=== PATIENT | female | born 1940 | race Caucasian/White ===

== ENCOUNTER → 2016-12-20 | Outpatient (CLI) | payer OTHER ==
[~2016-12-20] MED LIST: AMLO-110 PO; ATEN-173 PO; BNV150 PO; CMD4 PO
[2016-12-20 14:07] LABS: BLOOD UREA NITROGEN 14 mg/dl (7-18); BUN/CREATININE RATIO 20.6 (10-20); CALCIUM 8.9 mg/dl (8.5-10.1); CARBON DIOXIDE 24 mmol/L (21-32); CHLORIDE 106 mmol/L (98-107); GLUCOSE 96 mg/dl (70-99); POTASSIUM 4.3 mmol/L (3.5-5.1); SODIUM 139 mmol/L (136-145)
[2016-12-20 14:09] LABS: ALKALINE PHOSPHATASE 135 U/L (45-117); ALT/SGPT 26 U/L (12-78); AST/SGOT 16 U/L (15-37)
[2016-12-21 17:06] LABS: ALBUMIN 4.1 G/DL (3.8-4.8); GAMMA GLOBULIN 1.2 G/DL (0.8-1.7); IMMUNOFIXATION IGA SERUM 448 MG/DL (81-463); IMMUNOFIXATION IGG SERUM 1212 MG/DL (694-1618); IMMUNOFIXATION IGM SERUM 96 MG/DL (48-271); TOTAL PROTEIN 7.5 G/DL (6.2-8.3)
== END | disposition home or self-care (01) ==
LOC: C.LABPVFM 07:52
PROVIDERS: ATTEND Family Medicine
DX: R77.1 Abnormality of globulin (principal); I10 Essential (primary) hypertension

== ENCOUNTER → 2016-12-30 | Outpatient (CLI) | payer OTHER | END | disposition home or self-care (01) | LOC: C.MAMM 10:50 | PROVIDERS: ATTEND Family Medicine | DX: M85.852 Other specified disorders of bone density and structure, left thigh (principal); M85.851 Other specified disorders of bone density and structure, right thigh; M85.88 Other specified disorders of bone density and structure, other site ==

== ENCOUNTER → 2017-06-15 | Outpatient (CLI) | payer OTHER ==
[2017-06-15 17:20] LABS: BASO % 0.3 %; BASO ABS # 0.03 K/uL (0-0.2); COMPLETE YES; HEMATOCRIT 44.4 % (37-47); IG% 0.2 %; LYMPH % 24.5 %; LYMPH ABS # 2.45 K/uL (1.2-3.4); MEAN CELL VOLUME 94.9 fL (80-100); MEAN CORPUSCULAR HEMOGLOBIN 31.4 pg (25-34); MEAN CORPUSCULAR HGB CONC 33.1 g/dl (32-36); MEAN PLATELET VOLUME 12.2 fL (7.4-10.4); MONO % 8.2 %; NEUT % 65.8 %; PLATELET COUNT 248 K/uL (130-400); RED BLOOD COUNT 4.68 M/uL (4.2-5.4); WHITE BLOOD COUNT 9.99 K/uL (4.8-10.8)
[2017-06-15 17:31] LABS: ALT/SGPT 29 U/L (12-78); BLOOD UREA NITROGEN 12 mg/dl (7-18); BUN/CREATININE RATIO 16.1 (10-20); CALCIUM 9.2 mg/dl (8.5-10.1); CARBON DIOXIDE 31 mmol/L (21-32); CHLORIDE 104 mmol/L (98-107); CREATININE 0.72 mg/dl (0.60-1.20); GLUCOSE 85 mg/dl (70-99); POTASSIUM 4.3 mmol/L (3.5-5.1); SODIUM 138 mmol/L (136-145)
[2017-06-15 17:34] LABS: ALKALINE PHOSPHATASE 121 U/L (45-117); AST/SGOT 25 U/L (15-37)
== END | disposition home or self-care (01) ==
LOC: C.LABPVFM 11:47
PROVIDERS: ATTEND Family Medicine
DX: I10 Essential (primary) hypertension (principal); E55.9 Vitamin D deficiency, unspecified; R73.01 Impaired fasting glucose; R77.1 Abnormality of globulin

== ENCOUNTER → 2017-12-22 | Outpatient (CLI) | payer OTHER ==
[2017-12-22 13:37] LABS: ALBUMIN 3.7 gm/dl (3.4-5.0); ALT/SGPT 37 U/L (12-78); BLOOD UREA NITROGEN 12 mg/dl (7-18); CALCIUM 9.1 mg/dl (8.5-10.1); CARBON DIOXIDE 24 mmol/L (21-32); CHOLESTEROL 182 mg/dl (0-200); CREATININE 0.69 mg/dl (0.60-1.20); GLUCOSE 93 mg/dl (70-99); POTASSIUM 4.3 mmol/L (3.5-5.1); SODIUM 136 mmol/L (136-145)
[2017-12-22 13:41] LABS: ALKALINE PHOSPHATASE 125 U/L (45-117); AST/SGOT 26 U/L (15-37); LDL CHOLESTEROL CALCULATED 102 mg/dl; TOTAL PROTEIN 8.1 gm/dl (6.4-8.2)
== END | disposition home or self-care (01) ==
LOC: C.LABPVFM 08:55
PROVIDERS: ATTEND Family Medicine
DX: Z13.220 Encounter for screening for lipoid disorders (principal); R00.2 Palpitations; I10 Essential (primary) hypertension; E06.3 Autoimmune thyroiditis; E55.9 Vitamin D deficiency, unspecified; N81.10 Cystocele, unspecified

== ENCOUNTER → 2018-02-24 | Outpatient (CLI) | payer OTHER ==
--- NOTE | 2018-02-24 07:28 | DIAGNOSTIC IMAGING REPORT ---
ULTRASOUND ABDOMEN COMPLETE CLINICAL HISTORY: Low back pain. Left lower quadrant abdominal pain. COMPARISON STUDY: Abdominal ultrasound dated 10/25/2013. TECHNIQUE: Real-time, grayscale, and color flow sonography of the abdomen was performed. Images are reviewed in the transverse and longitudinal planes. FINDINGS: Liver: The liver is normal in size and echotexture. There is no intrahepatic biliary ductal dilatation. The main portal vein is patent. Gallbladder: The gallbladder is surgically absent. The common bile duct measures up to 0.5 cm in diameter. Pancreas: Visualized portions of the pancreatic head and body are normal in appearance. Spleen: The spleen is normal in size and echotexture, measuring 9.2 cm in length. Kidneys: The kidneys are normal in size and echotexture. There is no hydronephrosis. The right kidney measures 11.2 cm in length and the left kidney measures 11.4 cm in length. No shadowing calculi are identified. Abdominal vasculature: Visualized portions of the abdominal aorta and IVC are normal as imaged. Ascites: None. IMPRESSION: Unremarkable sonographic assessment of the abdomen noting status post cholecystectomy. Electronically signed by: Yash Mac M.D. 02/24/2018 7:27 AM Dictated Date/Time: 02/24/2018 7:25 AM
== END | disposition home or self-care (01) ==
LOC: C.ULTR 06:24
PROVIDERS: ATTEND Family Medicine
DX: M54.5 Low back pain (principal); R10.32 Left lower quadrant pain

== ENCOUNTER → 2018-04-06 | Day surgery (SDC) | payer OTHER ==
[2018-03-30 07:38] VITALS: BMI 28.0
[~2018-04-06] VITALS: Ht 157.5 cm; Wt 69.1 kg
[~2018-04-06] MED LIST changes: +ASCO10003 PO; -ATEN-173 PO; -BNV150 PO; +CALC600T9 PO; +CHOL100010 PO; -CMD4 PO; +EpHEDrine SULFATE INJ 50 MG/ML AMP ONE; +LIDOCAINE HCL 2% 2 ML VIAL (20MG/ML) ONE; +PROPOFOL IV EMULSION 10 MG/ML 20 ML VIAL ONE; +SODIUM CHLORIDE 0.9% 500ML 500 ML IV ONE; +TNR50 PO
[2018-04-06 15:01] VITALS: Ht 157.5 cm; Wt 69.1 kg
--- NOTE | 2018-04-06 15:53 | Endo History and Physical ---
History & Physical Date of Service: April 06, 2018. Chief Complaint: HX OF POLYPS, LLQ ABDOMINAL PAIN Referring Physician: DR. GARLAND History of Present Illness 77 yo CF who presents for colonoscopy secondary to LLQ abdominal pain. Past Surgical History Hx Cardiac Surgery: No Hx Internal Defibrillator: No Hx Pacemaker: No Hx Abdominal Surgery: Yes (HYSTERCTOMY, APPY, ANNE MARIE) Hx Post-Op Nausea and Vomiting: Yes Hx Cancer Surgery: No Hx Thoracic Surgery: No Hx Orthopedic: Yes (LEFT KNEE PARTIAL REPLACEMENT) Hx Urinary Tract Surgery: No Family History Colon CA, Polyp, IBD Social History Smoking Status: Never Smoker Hx Substance Use: No Hx Alcohol Use: Yes (OCCASIONAL) Allergies Coded Allergies: Iodinated Diagnostic Agents (Verified Allergy, Severe, HIVES->KIDNEY FUNCTION DYE, 03/30/18) Propoxyphene (Verified Allergy, Unknown, HIVES, 03/30/18) Codeine (Verified Adverse Reaction, Unknown, HALLUCINATIONS, 03/30/18) Current Medications Reported Home Medications Medications Dose Route/Sig Max Daily Dose Days Date Category Calcium + D (Calcium Carbonate-Vitamin D) 1 Tab Tab 1 Tab PO HS 03/30/18 Reported Vitamin C (Ascorbic Acid) 1,000 Mg Tab 1,000 Mg PO 3XWK 03/30/18 Reported Vitamin D (Cholecalciferol) 1,000 Unit Tab 1,000 Units PO HS 03/30/18 Reported Atenolol 50 Mg Tab 50 Mg PO BID 03/30/18 Reported Norvasc (Amlodipine Besylate) 5 Mg Tab 5 Mg PO QPM 02/12/09 Reported Vital Signs Weight (Kilograms): 69.09 Height (Feet): 5 Height (Inches): 2 Date Time Temp Pulse Resp B/P (MAP) Pulse Ox O2 Delivery O2 Flow Rate FiO2 04/06/18 15:12 36.7 66 20 151/78 (102) 96 Room Air Physical Exam General Appearance: WD/WN, no apparent distress Respiratory/Chest: Auscultation: breath sounds normal Cardiovascular: Heart Auscultation: RRR Abdomen: Bowel Sounds: normal Inspection & Palpation: soft, non-distended, no tenderness, guarding & rebound Assessment and Plan Assessment: 77 yo CF who presents for colonoscopy secondary to LLQ abdominal pain. Plan: Proceed with colonoscopy.
--- NOTE | 2018-04-06 16:33 | Discharge Instructions ---
Endoscopy Patient Instructions Date / Procedure(s) Performed April 06, 2018. Colonoscopy Allergy Information Coded Allergies: Iodinated Diagnostic Agents (Verified Allergy, Severe, HIVES->KIDNEY FUNCTION DYE, 03/30/18) Propoxyphene (Verified Allergy, Unknown, HIVES, 03/30/18) Codeine (Verified Adverse Reaction, Unknown, HALLUCINATIONS, 03/30/18) Discharge Date / Findings April 06, 2018. Colon polyps Diverticulosis Internal hemorrhoids Medication Instructions OK to resume all medications today as prescribed Reported Home Medications Medications Dose Route/Sig Max Daily Dose Days Date Category Calcium + D (Calcium Carbonate-Vitamin D) 1 Tab Tab 1 Tab PO HS 03/30/18 Reported Vitamin C (Ascorbic Acid) 1,000 Mg Tab 1,000 Mg PO 3XWK 03/30/18 Reported Vitamin D (Cholecalciferol) 1,000 Unit Tab 1,000 Units PO HS 03/30/18 Reported Atenolol 50 Mg Tab 50 Mg PO BID 03/30/18 Reported Norvasc (Amlodipine Besylate) 5 Mg Tab 5 Mg PO QPM 02/12/09 Reported Provider Instructions Activity Restrictions - No exercising or heavy lifting for 24 hours. - Do not drink alcohol the day of the procedure. - Do not drive a car or operate machinery until the day after the procedure. - Do not make any important decisions or sign important papers in 24 hours after the procedure. Following Day: - Return to full activity which may include returning to work/school. Diet Start your diet with liquids and light foods (jello, soup, juice, toast). Then eat your usual diet if not nauseated. Treatment For Common After Affects For mild abdominal pain, bloating, or excessive gas: - Rest - Eat lightly - Lie on right side Follow-Up Information Follow-up with DR. GARLAND as scheduled Anesthesia Information What You Should Know You have had a procedure that required some medicine to reduce anxiety and discomfort. This treatment is called moderate sedation. After receiving the treatment, you may be sleepy, but you will be able to breathe on your own. The effects of the treatment may last for several hours. Follow these instructions along with Activity/Diet recommendations noted above: * Do NOT do anything where dizziness or clumsiness would be dangerous. * Rest quietly at home today, then you can be up and about tomorrow. * Have a responsible person stay with you the rest of today. * You may have had an I.V. today. If so, you may take the dressing off later today. Recommendations Call your doctor if: * Trouble breathing * Continuous vomiting for more than 24 hours * Temperature above 101 degrees * Severe abdominal pain or bloating * Pain not relieved by pain medicine ordered * There is increased drainage or redness from any incision * A large amount of rectal bleeding greater than 2-3 tablespoons. (If you had a polyp/s removed or have hemorrhoids, a small amount of blood - from the rectum is to be expected.) * You have any unanswered questions or concerns. IN THE EVENT OF A SERIOUS EMERGENCY, GO TO THE NEAREST EMERGENCY ROOM Your discharge instructions were prepared by provider Buck Jackman. Patient Instructions Signature Page Delphine Walls Patient (or Guardian) Signature/Date: I have read and understand the instructions given to me by my caregivers. Caregiver/RN/Doctor Signature/Date: The above-named patient and/or guardian has received patient instructions on this date. + Original Patient Signature Page (only) stays with chart. Please make copy for patient.
--- NOTE | 2018-04-06 16:52 | Anesthesiology Progress Note ---
Anesthesia Post Op Note Date & Time April 06, 2018 at 16:52 Vital Signs Pain Intensity: 0 Vital Signs Past 12 Hours Date Time Temp Pulse Resp B/P (MAP) Pulse Ox O2 Delivery O2 Flow Rate FiO2 04/06/18 16:39 72 16 130/50 (76) 96 Room Air 04/06/18 15:12 36.7 66 20 151/78 (102) 96 Room Air Notes Mental Status: alert / awake / arousable, participated in evaluation Pt Amnestic to Procedure: Yes Nausea / Vomiting: adequately controlled Pain: adequately controlled Airway Patency, RR, SpO2: stable & adequate BP & HR: stable & adequate Hydration State: stable & adequate Anesthetic Complications: no major complications apparent
--- NOTE | 2018-04-06 17:01 | GI REPORT ---
Patient Name: Delphine Walls Procedure Date: 04/06/2018 3:58 PM Date of : 1940 Admit Type: Outpatient Age: 77 Gender: Female Attending MD: Buck Jackman DO Procedure: Colonoscopy Providers: Buck Jackman DO Referring MD: Cornelius Hardin Indications: Abdominal pain in the left lower quadrant Medicines: Monitored Anesthesia Care Complications: No immediate complications. Estimated Blood Loss: Estimated blood loss: none. Procedure: Pre-Anesthesia Assessment: - Prior to the procedure, a History and Physical was performed, and patient medications and allergies were reviewed. The patient's tolerance of previous anesthesia was also reviewed. The risks and benefits of the procedure and the sedation options and risks were discussed with the patient. All questions were answered, and informed consent was obtained. Prior Anticoagulants: The patient has taken no previous anticoagulant or antiplatelet agents. ASA Grade Assessment: III - A patient with severe systemic disease. After reviewing the risks and benefits, the patient was deemed in satisfactory condition to undergo the procedure. After I obtained informed consent, the scope was passed under direct vision. Throughout the procedure, the patient's blood pressure, pulse, and oxygen saturations were monitored continuously. The On-site loaner was introduced through the anus and advanced to the cecum, identified by appendiceal orifice and ileocecal valve. The colonoscopy was performed without difficulty. The patient tolerated the procedure well. The quality of the bowel preparation was fair. The ileocecal valve, appendiceal orifice, and rectum were photographed. Findings: The perianal and digital rectal examinations were normal. Two sessile polyps were found in the cecum. The polyps were 3 to 5 mm in size. These polyps were removed with a cold snare. Resection and retrieval were complete. A 3 mm polyp was found in the transverse colon. The polyp was sessile. The polyp was removed with a cold biopsy forceps. Resection and retrieval were complete. Many small and large-mouthed diverticula were found in the entire colon. Non-bleeding internal hemorrhoids were found during retroflexion. The hemorrhoids were small. Impression: - Preparation of the colon was fair. - Two 3 to 5 mm polyps in the cecum, removed with a cold snare. Resected and retrieved. - One 3 mm polyp in the transverse colon, removed with a cold biopsy forceps. Resected and retrieved. - Diverticulosis in the entire examined colon. - Non-bleeding internal hemorrhoids. Recommendation: - Resume previous diet. - Continue present medications. - Await pathology results. - Return to primary care physician as previously scheduled. Buck Jackman, DO 04/06/2018 5:01:25 PM This report has been signed electronically. Note Initiated On: 04/06/2018 3:58 PM Number of Addenda: 0 I attest to the content of the Intraoperative Record and orders documented therein, exceptions below {[id number]}
[2018-04-06 17:10] VITALS: BP 139/68; PULSE 59; O2SAT 9
== END | disposition home or self-care (01) ==
LOC: C.GI 14:46
PROVIDERS: ATTEND Internal Medicine
DX: R10.32 Left lower quadrant pain (principal); D12.0 Benign neoplasm of cecum; D12.3 Benign neoplasm of transverse colon; K57.90 Diverticulosis of intestine, part unspecified, without perforation or abscess without bleeding; K64.8 Other hemorrhoids; Z86.010 Personal history of colon polyps; I10 Essential (primary) hypertension; Z88.5 Allergy status to narcotic agent; Z90.710 Acquired absence of both cervix and uterus; Z90.89 Acquired absence of other organs; Z90.49 Acquired absence of other specified parts of digestive tract; Z79.899 Other long term (current) drug therapy

== ENCOUNTER 2020-04-11 02:17 | Observation (INO) ==
[2020-04-11 03:05] LABS: Basophils # (auto) 0.02 K/uL (0-0.2); Basophils % (auto) 0.2 %; Eosinophils # (auto) 0.13 K/uL (0-0.5); Eosinophils % (auto) 1.4 %; Hematocrit (blood only) 41.3 % (37-47); Hemoglobin 13.7 g/dL (12.0-16.0); Immature Granulocytes # (auto) 0.02 K/uL (0.00-0.02); Immature Granulocytes % (auto) 0.2 %; Lymphocytes # (auto) 2.37 K/uL (1.2-3.4); Lymphocytes % (auto) 25.1 %; Mean Corpuscular Hemoglobin 30.2 pg (25-34); Mean Corpuscular Hgb Conc 33.2 g/dL (32-36); Mean Platelet Volume 11.8 fL (7.4-10.4); Monocytes # (auto) 0.97 K/uL (0.11-0.59); Monocytes % (auto) 10.3 %; Neutrophils # (auto) 5.92 K/uL (1.4-6.5); Neutrophils % (auto) 62.8 %; Platelet Count 242 K/uL (130-400); RDW Coefficient of Variation 13.3 % (11.5-14.5); RDW Standard Deviation 44.2 fL (36.4-46.3); Red Blood Count 4.54 M/uL (4.2-5.4); White Blood Count 9.43 K/uL (4.8-10.8)
[2020-04-11 03:13] LABS: Alanine Aminotransferase 30 U/L (12-78); Albumin Level 3.4 gm/dl (3.4-5.0); Aspartate Aminotransferase 20 U/L (15-37); BUN Creatinine Ratio 20.6 (10-20); Blood Urea Nitrogen 15 mg/dl (7-18); Calcium 8.6 mg/dl (8.5-10.1); Carbon Dioxide 26 mmol/L (21-32); Chloride 108 mmol/L (98-107); Creatinine Clr Calc Pharmacy 66.1 ml/min; Est GFR (African American) 90.6; Est GFR (Non-African American) 78.1; Glucose 107 mg/dl (70-99); Lipase 111 U/L (73-393); Sodium 141 mmol/L (136-145)
[2020-04-11 03:18] LABS: Albumin Globulin Ratio 0.8 (0.9-2); Alkaline Phosphatase 147 U/L (45-117); Bilirubin,Total 0.3 mg/dl (0.2-1); Globulin 4.4 gm/dl (2.5-4.0); Total Protein 7.8 gm/dl (6.4-8.2); Troponin I < 0.015 ng/ml (0-0.045)
--- NOTE | 2020-04-11 03:44 | Emergency Department Note ---
Impression & Plan Chest discomfort, Hypertension ED Provider Note NAME: KLAUS RUELAS AGE: 79 SEX: F ARRIVES VIA: Ambulance INFORMANT: Patient ED PROVIDER(S): Ethel Almonte DO CHIEF COMPLAINT: Chest pressure/shortness of breath and hypertension PLAN: Disposition: [Admitted to the [facility]ist Condition: Stable MEDICAL DECISION MAKING: This is a 79-year-old female patient who presents to the emergency department after an episode of chest pressure and shortness of breath. Patient was conc erned because she has had increased episodes of hypertension. The patient did have a slightly elevated blood pressure here in the emergency department but her chest pressure had resolved. She had a normal-appearing EKG and negative first troponin. However given her description of chest discomfort that kept her from sleep tonight, I felt she would require further inpatient evaluation and stress testing. I discussed the case with the [facility] and they will evaluate for further care. Triage Nursing notes reviewed and agree them. Prior medical records reviewed Vital Signs: reviewed and remarkable for hypertension Differential diagnosis: GERD, anxiety, hypertension, cardiac ischemia, pleurisy, costochondritis ER treatment provided: None Diagnostics interpreted by me: ECG: Sinus bradycardia at 59. There is no ST segment elevation, no ectopy, no evidence of ischemia Cardiac Monitoring: Sinus bradycardia at a rate of 66 with no signs of ischemia Laboratory studies: See below Imaging studies: As per my interpretation Chest x-ray-mild cardiomegaly but no other pulmonary findings HPI: 79/F arrives for evaluation of chest pressure/shortness of breath and hypertension. This is a 79-year-old female patient with a history of hypertension who describes not feeling her usual self when she laid down for bed around 9 PM this evening. The patient states that she actually did not fall asleep but tried to get comfortable with a new pillow. Around 11 PM, the patient developed chest heaviness/pressure that she described like an elephant sitting on her chest. The patient got up and tried to walk around to see if the discomfort would go away and noted that she developed a headache. She took her blood pressure and found it to be greater than 200 systolically. EMS was called. By the time they arrived, the patient states that the chest pressure seem to subside but she continued to complain of some discomfort in her eyes. She denies ever having chest pressure like this in the past. The patient has been followed very closely by her PCP in the past couple of months with some changes to her antihypertensives. She has been supplying blood pressure readings to her primary care office every 2 weeks. The patient is currently taking losartan 100 mg and atenolol 100 mg. She states that she typically has a systolic blood pressure between 156 and 181 and a diastolic blood pressure around 60. ROS: See above HPI for pertinent positives & negatives. A total of 10 systems r eviewed and were otherwise negative. PAST MEDICAL HISTORY:See Below PAST SURGICAL HISTORY:See Below FAMILY HISTORY:See Below SOCIAL HISTORY:See Below HOME MEDICATIONS:See list ALLERGIES:See list VITALS:See Below PHYSICAL EXAMINATION: HEENT: Head - normocephalic and atraumatic Pupils are equal, round, and reactive to light. Extraocular eye muscles are intact, and sclera are anicteri c. Nose - moist nasal mucosa without discharge. Mouth - moist buccal mucosa. Oropharynx is nonerythematous and there is no tonsillar exudate or edema noted. Neck: Supple; no JVD, nuchal rigidity, cervical lymphadenopathy, or auscultated bruits. Heart: Regular rate and rhythm. There is a normal S1 and S2 with no murmurs, clicks, or gallops appreciated. Lungs: Clear to auscultation bilaterally with no wheezes, rales, or rhonchi. Abdomen: Soft, completely nontender, nondistended, with good bowel sounds. There are no palpable pulsatile masses or hepatosplenomegaly. There is no guarding, rigidity, or rebound noted. Extremities: No evidence of cyanosis, clubbing, or edema. There are easily palpable peripheral pulses. Skin: warm and dry with good turgor and no rashes. ED COURSE: Times/Reassessments: 0225: The patient was evaluated in room C9. A complete history and physical was performed. An order was placed for continuous cardiac monitoring. The patient was in a normal sinus rhythm at a rate of 62. Laboratory studies were drawn as above. The patient's blood pressure was monitored closely. A twelve-lead EKG was obtained. Patient will have a chest x-ray. 0415: I reevaluated the patient at this time. She remained chest pain-free. I reviewed the results of the x-ray as well as laboratory studies with the patient. I explained that I would like her to be admitted to the hospital for further work-up of the chest discomfort she had at her home. I discussed the case with the [facility] and they will evaluate for further management. Ethel Almonte DO Past Med/Surg History Medical History (Updated 04/11/20 @ 14:59 by Ethel Almonte DO) Anaplasmosis Diverticulosis of colon (Acute) Annabelle's thyroiditis Sensorineural hearing loss (SNHL) of both ears Surgical History (Updated 03/19/20 @ 11:46 by Cornelius Hardin MD) History of appendectomy History of cholecystectomy History of hysterectomy History of oophorectomy History of partial knee replacement History of tonsillectomy and adenoidectomy No pertinent past surgical history Social History Preferred Language: Mexican Visual Impairment: No Limitations Hearing Ability: Use of Hearing Aid marital status: / Current Living Situation: Alone current occupational status: retired Feels Safe at Home: Yes Smoking Status: Never smoker Second Hand Exposure: No ; Hx Alcohol Use: No Hx Substance Use: No Dental Care, Regularly: Yes Seatbelt Use: always Allergies Allergies Allergy/AdvReac Type Severity Reaction Status Date / Time Iodinated Contrast Media Allergy Severe HIVES->KIDNEY Verified 04/11/20 03:10 FUNCTION DYE propoxyphene Allergy Unknown HIVES Verified 04/11/20 03:10 morphine AdvReac Severe Vomiting Unverified 04/11/20 03:10 codeine AdvReac Unknown HALLUCINATI Verified 04/11/20 03:10 ONS amlodipine AdvReac edema Verified 04/11/20 03:10 Home Meds Home Medications Medication Instructions Recorded Confirmed calcium carbonate 600 mg (1,500 1 tab PO DAILY tab 04/03/19 04/11/20 mg)-vitamin D3 200 unit tablet melatonin 5 mg capsule 5 mg PO HS cap 01/08/20 04/11/20 Previous Rx's Medication Instructions Recorded Saccharomyces boulardii [Florastor] 250 mg PO BID #20 cap 04/08/19 fluticasone propionate 50 1 sprays INTRANASAL DAILY #3 gm 07/24/19 mcg/actuation nasal spray,suspension omeprazole 40 mg capsule,delayed 40 mg PO DAILY #60 cap 01/22/20 release atenolol 100 mg tablet 100 mg PO ONCE #90 tab 03/14/20 losartan 100 mg tablet 100 mg PO DAILY #90 tab 03/25/20 hydrochlorothiazide 12.5 mg PO DAILY #30 cap 04/11/20 Results & Data (ED) Vital Signs Vital Signs - 24 hr 04/11/20 02:26 04/11/20 02:38 04/11/20 03:00 Temperature 36.9 C Temperature Source Oral Pulse Rate 69 62 59 L Pulse Rate from SpO2 Sensor 63 58 L Respiratory Rate 18 17 16 Respiratory Depth Normal Blood Pressure 204/90 H 197/125 H 172/109 H Blood Pressure Mean 128 139 147 Pulse Oximetry 96 97 95 Oxygen Delivery Method Room Air Room Air Room Air Sepsis Recent Fever Within 48 Hours No Sepsis New/Unexplained Change in Mental Status No Sepsis Action Taken by Nursing No Action Required 04/11/20 03:30 04/11/20 04:23 04/11/20 04:30 Temperature Temperature Source Pulse Rate 56 L 53 L 55 L Pulse Rate from SpO2 Sensor 55 L 53 L 55 L Respiratory Rate 19 19 19 Respiratory Depth Blood Pressure 173/103 H 188/77 H 179/93 H Blood Pressure Mean 138 114 131 Pulse Oximetry 94 95 96 Oxygen Delivery Method Room Air Room Air Room Air Sepsis Recent Fever Within 48 Hours Sepsis New/Unexplained Change in Mental Status Sepsis Action Taken by Nursing 04/11/20 05:00 Temperature Temperature Source Pulse Rate 57 L Pulse Rate from SpO2 Sensor 57 L Respiratory Rate 15 Respiratory Depth Blood Pressure 175/95 H Blood Pressure Mean 108 Pulse Oximetry 97 Oxygen Delivery Method Room Air Sepsis Recent Fever Within 48 Hours Sepsis New/Unexplained Change in Mental Status Sepsis Action Taken by Nursing Laboratory Data Result diagrams: 04/11/20 01:45 04/11/20 01:45 Lab Results 04/11/20 04/11/20 04/11/20 Range/Units 01:45 01:45 03:59 WBC 9.43 (4.8-10.8) K/uL RBC 4.54 (4.2-5.4) M/uL Hgb 13.7 (12.0-16.0) g/dL Hct 41.3 (37-47) % MCV 91.0 (80-100) fL MCH 30.2 (25-34) pg MCHC 33.2 (32-36) g/dL RDW Std Deviation 44.2 (36.4-46.3) fL RDW Coeff of Haylee 13.3 (11.5-14.5) % Plt Count 242 (130-400) K/uL MPV 11.8 H (7.4-10.4) fL Immature Gran % (Auto) 0.2 % Neut % (Auto) 62.8 % Lymph % (Auto) 25.1 % Griggs % (Auto) 10.3 % Eos % (Auto) 1.4 % Baso % (Auto) 0.2 % Immature Gran # (Auto) 0.02 (0.00-0.02) K/uL Neut # (Auto) 5.92 (1.4-6.5) K/uL Lymph # (Auto) 2.37 (1.2-3.4) K/uL Griggs # (Auto) 0.97 H (0.11-0.59) K/uL Eos # (Auto) 0.13 (0-0.5) K/uL Baso # (Auto) 0.02 (0-0.2) K/uL PT 10.4 (9.0-12.0) Seconds INR 1.0 (0.9-1.1) APTT 28.8 (21.0-31.0) Seconds PTT Ratio 1.0 Sodium 141 (136-145) mmol/L Potassium 4.0 (3.5-5.1) mmol/L Chloride 108 H (98-107) mmol/L Carbon Dioxide 26 (21-32) mmol/L Anion Gap 7.0 (3-11) BUN 15 (7-18) mg/dl Creatinine 0.74 (0.6-1.2) mg/dl Est Cr Clr Drug Dosing 66.1 ml/min Est GFR ( Amer) 90.6 Est GFR (Non-Af Amer) 78.1 BUN/Creatinine Ratio 20.6 H (10-20) Glucose 107 H (70-99) mg/dl Calcium 8.6 (8.5-10.1) mg/dl Total Bilirubin 0.3 (0.2-1) mg/dl AST 20 (15-37) U/L ALT 30 (12-78) U/L Alkaline Phosphatase 147 H (45-117) U/L Troponin I < 0.015 (0-0.045) ng/ml Total Protein 7.8 (6.4-8.2) gm/dl Albumin 3.4 (3.4-5.0) gm/dl Globulin 4.4 H (2.5-4.0) gm/dl Albumin/Globulin Ratio 0.8 L (0.9-2) Lipase 111 (73-393) U/L Administered Medications Enoxaparin Sodium (Lovenox) 40 mg SQ Q24H EMELYN Stop: 05/11/20 08:59 Last Admin: 04/11/20 11:39 Dose: Not Given Documented by: [id number] Losartan Potassium (Cozaar) 100 mg PO DAILY EMELYN Stop: 05/11/20 08:59 Last Admin: 04/11/20 11:34 Dose: 100 mg Documented by: [id number] Multivitamins/Minerals (Caltrate Plus) 1 tab PO DAILY EMELYN Stop: 05/11/20 08:59 Last Admin: 04/11/20 11:35 Dose: 1 tab Documented by: [id number] Pantoprazole Sodium (Protonix) 40 mg PO DAILY EMELYN Stop: 05/11/20 08:59 Last Admin: 04/11/20 11:34 Dose: 40 mg Documented by: [id number] Saccharomyces Boulardii (Florastor) 250 mg PO BID EMELYN Stop: 05/11/20 08:59 Last Admin: 04/11/20 11:34 Dose: 250 mg Documented by: [id number] Discontinued Medications Atenolol (Tenormin) 100 mg PO DAILY [facility] Stop: 05/11/20 08:59 Last Admin: 04/11/20 12:14 Dose: Not Given Documented by: [id number] Atropine Sulfate (Atropine Sulfate) Confirm Administered Dose 2 mg IV .STK-MED ONE Stop: 04/11/20 08:42 Last Admin: 04/11/20 12:33 Dose: 0.25 mg Documented by: [id number] Dobutamine HCl (Dobutrex) Confirm Administered Dose 250 mg IV .STK-MED ONE Stop: 04/11/20 08:42 Last Admin: 04/11/20 12:34 Dose: 1 dose Documented by: [id number] Hydrochlorothiazide (Hctz) 12.5 mg PO NOW STA Stop: 04/11/20 14:09 Last Admin: 04/11/20 14:40 Dose: 12.5 mg Documented by: [id number] Metoprolol Tartrate (Lopressor) Confirm Administered Dose 10 mg IV .STK-MED ONE Stop: 04/11/20 08:42 Last Admin: 04/11/20 12:37 Dose: 5 mg Documented by: [id number] Discharge Plan Visit Data *Final* Discharge Date/Time: 04/11/20 06:10 Chief Complaint: Chest Pain Stated Complaint: Chest pressure, shortness of breath ED Provider: Ethel Almonte Discharge Problem: Chest discomfort, Hypertension Patient Disposition: Admitted As Inpatient Discharge Instructions Interventions: ED Discharge Assessment Last Done: 04/11/20 06:10 Discharge Problem: Hypertension Qualifiers: Hypertension type: unspecified Qualified Code(s): I10 - Essential (primary) hypertension
[2020-04-11 04:25] LABS: Partial Thromboplastin Time 28.8 Seconds (21.0-31.0); Prothrombin Time 10.4 Seconds (9.0-12.0)
--- NOTE | 2020-04-11 05:36 | History & Physical Report ---
Date of Service April 11, 2020 Assessment & Plan (1) Hypertension: Mariela Walls is a 79 year old woman with HTN here for a brief episode of chest discomfort as she was lying down Chest Discomfort Atypical description of her chest discomfort, but patient does have risk factors of age risk and moderately suspicious story Will admit for chest pain rule out Trending tropoins Stress test in am, she tells me she had one many years ago and had to be dobutamine stress test secondary to her beta narinder use Will get ECG with any new chest pain HTN Continuing home antihypertensives If she becomes more hypertensive could add calcium channel narinder or thiazide like diuretic like chlorthalidone No need to treat at present DVT PPx: Lovenox F/E/N: heart healthy diet Dispo: MEd/Surg pending stress test and trending troponins then hopefully home with outpatient follow up DNR/DNI (2) Multinodular goiter: (3) Acid reflux disease: (4) Chest discomfort: History of Present Illness Chief Complaint: Chest discomfort Primary Care Provider: Cornelius Hardin MD Delphine Walls is a 79 year old woman with a past medical history significa nt for HTN and a large benign thyroid goiter. She presents today because she had some chest discomfort while lying flat at home in bed. She notes that the sensation was a pressure in her chest similar to the pressure she gets when her goiter presses against her esphoagus but also different in a way she could not quite explain. She does not believe it is exertional at all but says that it does seem to be positional. It only occurred while she was lying flat and when she'd sit back up she was much improved. She had recovered by the time she arrived to emergency department and now feels in her usual state of health. She does not report any lightheadedness, she does say she may have had palpitations but she also has chest muscle spasms and she is not sure if these are palpitations or muscle spasm. She denies diaphoresis, nausea, vomiting cristóbal pain. She had some difficulty catching her breath while lying flat but this was resolved almost immediately on changing position. She denies any history of this before and says she was as active as she usually is and has not had any incresed fatigue or shortness of breath with her household activities. She has been staying at home mostly for mackenzie virus concern, denies any fevers, or chills, has not had any sick contacts. On presentation to ED vitals notable for mild bradycardia in 50's and hypertension 179/93 at present. afrebrile O2 sat 96% on RA. Labwork fairly unremarkable including negative albumin. ECG showing sinus bradycardia with no concerning changes from previous ECG reviewed by ED provider and myself. No personal or family history of heart disease CVA or peripheral artery disease, patient with history of HTN, no history of high cholesterol, no history of DM, never smoker, not obese. Lives at home with four Cats, . Allergies Allergy/AdvReac Type Severity Reaction Status Date / Time Iodinated Contrast Media Allergy Severe HIVES->KIDNEY Verified 04/11/20 03:10 FUNCTION DYE propoxyphene Allergy Unknown HIVES Verified 04/11/20 03:10 morphine AdvReac Severe Vomiting Unverified 04/11/20 03:10 codeine AdvReac Unknown HALLUCINATI Verified 04/11/20 03:10 ONS amlodipine AdvReac edema Verified 04/11/20 03:10 Home Medications Home Medications Medication Instructions Recorded Confirmed Type calcium carbonate 600 mg (1,500 1 tab PO DAILY tab 04/03/19 04/11/20 History mg)-vitamin D3 200 unit tablet Saccharomyces boulardii [Florastor] 250 mg PO BID #20 cap 04/08/19 04/11/20 Rx fluticasone propionate 50 1 sprays INTRANASAL DAILY #3 gm 07/24/19 04/11/20 Rx mcg/actuation nasal spray,suspension melatonin 5 mg capsule 5 mg PO HS cap 01/08/20 04/11/20 History omeprazole 40 mg capsule,delayed 40 mg PO DAILY #60 cap 01/22/20 04/11/20 Rx release atenolol 100 mg tablet 100 mg PO ONCE #90 tab 03/14/20 04/11/20 Rx losartan 100 mg tablet 100 mg PO DAILY #90 tab 03/25/20 04/11/20 Rx hydrochlorothiazide 12.5 mg PO DAILY #30 cap 04/11/20 Rx Past Med/Surg History Medical History (Updated 04/11/20 @ 14:59 by Ethel Almonte DO) Anaplasmosis Diverticulosis of colon (Acute) Annabelle's thyroiditis Sensorineural hearing loss (SNHL) of both ears Surgical History (Updated 03/19/20 @ 11:46 by Cornelius Hardin MD) History of appendectomy History of cholecystectomy History of hysterectomy History of oophorectomy History of partial knee replacement History of tonsillectomy and adenoidectomy No pertinent past surgical history Social History Preferred Language: Wolof Visual Impairment: No Limitations Hearing Ability: Use of Hearing Aid marital status: / Current Living Situation: Alone current occupational status: retired Feels Safe at Home: Yes Smoking Status: Never smoker Second Hand Exposure: No ; Hx Alcohol Use: No Hx Substance Use: No Dental Care, Regularly: Yes Seatbelt Use: always Review of Systems Review of Systems: All systems reviewed & are unremarkable except as noted in HPI & below Physical Exam Constitutional: well developed and well nourished; no acute distress, not ill appearing and no altered mental status Eyes: PERRL, conjunctivae normal, anicteric sclerae ENMT: external ear and nose normal, oropharynx normal Neck: Enlarged thyroid, nontender goiter larger on the right than left.Firm but not woody Respiratory: normal respiratory effort, lungs clear to auscultation Cardiovascular: RRR, no murmur, no edema Gastrointestinal (Abdomen): normal bowel sounds, soft, nontender, no hepatosplenomegaly Skin: no rashes, warm and dry Psychiatric: A+Ox3, euthymic affect Results & Data Results & Data ([facility]) Vital Signs (Past 12 Hours) Vital Signs Temp Pulse Resp BP Pulse Ox 04/11/20 04:30 55 L 19 179/93 H 96 04/11/20 04:23 53 L 19 188/77 H 95 04/11/20 03:30 56 L 19 173/103 H 94 04/11/20 03:00 59 L 16 172/109 H 95 04/11/20 02:38 62 17 197/125 H 97 04/11/20 02:26 36.9 C 69 18 204/90 H 96 Supervising Physician Co-Signing Physician Notes Attending addendum: I have physically seen this patient, have supervised the medical residents activities, and agree with the H&P unless as otherwise noted. Assessment and Plan: Atypical chest pain/hypertension- The patient will be admitted to telemetry for serial cardiac enzymes, serial EKG's, cardiac rhythm monitoring and a 2-D echocardiogram with Dopplers. Continue atenolol, losartan, HCTZ. Order stress test. Remaining orders and notations as noted. Resident Activity Tracking Resident Involvement: Resident Care Provided Care Provided: Adult Hospital Medicine
[2020-04-11] MEDS ORDERED: POLYETHYLENE (MIRALAX) 17 GM PACK PO PRN (06:23)
[2020-04-11] MEDS ORDERED: ACETAMINOPHEN 325 MG TAB PO PRN (06:23)
[2020-04-11] MEDS ORDERED: NITROGLYCERIN SL 0.4 MG/TAB TAB SL PRN (06:23)
[2020-04-11] MEDS ORDERED: ONDANSETRON INJ 2 MG/ML 2 ML VIAL IV PRN (06:23)
--- NOTE | 2020-04-11 07:35 | XRay Report ---
XR chest 1V portable HISTORY: Atypical Chest Pain COMPARISON: Chest 04/08/2019. FINDINGS: No pneumothorax. No pleural effusions. The heart is mildly enlarged. There is mild central pulmonary vascular congestion without overt edema. No new focal lung consolidations to suggest pneumo joao. IMPRESSION: Cardiomegaly with mild central pulmonary vascular congestion. No cristóbal pulmonary edema. ACT 112: Negative or not required by law. Electronically signed by: Erik Coleman M.D. 04/11/2020 7:33 AM
[2020-04-11] MEDS ORDERED: ENOXAPARIN INJ 40 MG/0.4 ML SYR SQ SCH (09:00)
[2020-04-11] MEDS ORDERED: LOSARTAN POTASSIUM 50 MG TAB PO SCH (09:00)
[2020-04-11] MEDS ORDERED: ATENOLOL 50 MG TABLET PO SCH ×2 (09:00→17:00)
[2020-04-11] MEDS ORDERED: SACCHAROMYCES BOULARDII 250 MG CAP PO SCH (09:00)
[2020-04-11] MEDS ORDERED: CALCIUM 600MG + VIT D 400 IU TAB PO SCH (09:00)
[2020-04-11] MEDS ORDERED: PANTOprazole 40 MG TAB PO SCH (09:00)
[2020-04-11] MEDS: ATROPINE SULFATE 0.1 MG/ML 10ML SYR IV ONE ×2 (11:26→12:33)
[2020-04-11] MEDS: DOBUTamine HCL 12.5 MG/ML 20 ML VIAL IV ONE ×2 (11:27→12:34)
[2020-04-11] MEDS: METOPROLOL TARTRATE 1 MG/ML VIAL IV ONE ×2 (11:27→12:37)
[2020-04-11] MEDS ORDERED: Nursing to Pharmacy Communication ONE (11:40)
[2020-04-11] MEDS ORDERED: hydroCHLOROthiazide 25 MG TAB PO STA (14:08)
--- NOTE | 2020-04-11 14:08 | XCELERA ---
[id number] \\[id number]___[id number]
--- NOTE | 2020-04-11 14:20 | Discharge Summary ---
Date of Service April 11, 2020 Admission HPI Per Admitting Provider Delphine Walls is a 79 year old woman with a past medical history significant for HTN and a large benign thyroid goiter. She presents today because she had some chest discomfort while lying flat at home in bed. She notes that the sensation was a pressure in her chest similar to the pressure she gets when her goiter presses against her esphoagus but also different in a way she could not quite explain. She does not believe it is exertional at all but says that it does seem to be positional. It only occurred while she was lying flat and when she'd sit back up she was much improved. She had recovered by the time she arrived to emergency department and now feels in her usual state of health. She does not report any lightheadedness, she does say she may have had palpitations but she also has chest muscle spasms and she is not sure if these are palpitations or muscle spasm. She denies diaphoresis, nausea, vomiting cristóbal pain. She had some difficulty catching her breath while lying flat but this was resolved almost immediately on changing position. She denies any history of this before and says she was as active as she usually is and has not had any incresed fatigue or shortness of breath with her household activities. She has been staying at home mostly for mackenzie virus concern, denies any fevers, or chills, has not had any sick contacts. On presentation to ED vitals notable for mild bradycardia in 50's and hypertension 179/93 at present. afrebrile O2 sat 96% on RA. Labwork fairly unremarkable including negative albumin. ECG showing sinus bradycardia with no concerning changes from previous ECG reviewed by ED provider and myself. No personal or family history of heart disease CVA or peripheral artery disease, patient with history of HTN, no history of high cholesterol, no history of DM, never smoker, not obese. Lives at home with four Cats, . Admission Exam Per Admitting Provider Constitutional: well developed and well nourished; no acute distress, not ill appearing and no altered mental status Eyes: PERRL, conjunctivae normal, anicteric sclerae ENMT: external ear and nose normal, oropharynx normal Neck: Enlarged thyroid, nontender goiter larger on the right than left.Firm but not woody Respiratory: normal respiratory effort, lungs clear to auscultation Cardiovascular: RRR, no murmur, no edema Gastrointestinal (Abdomen): normal bowel sounds, soft, nontender, no hepatosplenomegaly Skin: no rashes, warm and dry Psychiatric: A+Ox3, euthymic affect Principal Diagnosis atypical chest pain Discharge Exam Constitutional WD/WN, vitals as above Respiratory normal respiratory effort, lungs clear to auscultation Cardiovascular RRR, no murmur, no edema Gastrointestinal (Abdomen) normal bowel sounds, soft, nontender, no hepatosplenomegaly Skin no rashes, warm and dry Psychiatric A+Ox3, euthymic affect Discharge Data Allergies Allergy/AdvReac Type Severity Reaction Status Date / Time Iodinated Contrast Media Allergy Severe HIVES->KIDNEY Verified 04/11/20 03:10 FUNCTION DYE propoxyphene Allergy Unknown HIVES Verified 04/11/20 03:10 morphine AdvReac Severe Vomiting Unverified 04/11/20 03:10 codeine AdvReac Unknown HALLUCINATI Verified 04/11/20 03:10 ONS amlodipine AdvReac edema Verified 04/11/20 03:10 Hospital Course (1) Hypertension: 79 yo F PMHx HTN admitted for chest pain rule out. Atypical chest pain in patient with existing HTN: - Patient admitted for follow up of cardiac enzymes and stress Echo. - dobutamine stress test without signs of ischemia. - troponins negative x2, patient asymptomatic at this time. - Continue home medications; optimize HTN with addition of HCTZ 12.5mg daily. - BMP in 1 week to assess kidney function. - CXR without signs of pneumonia, other lung pathology. - Unclear etiology of pressure sensation at this time. Possible GERD vs. anxiety vs. pressure sensation from her benign goiter. Dispo: home with self-care (2) Multinodular goiter: (3) Acid reflux disease: (4) Chest discomfort: Total Time Total Time Spent Total Time Spent (In Minutes): >30 Discharge Plan Discharge Items Patient Disposition: Home - Self-Care Reason For Visit: CHEST PRESSURE Discharge Diagnosis: Hypertension Activity: Per Instructions section Non-emergency contact: Primary Care Provider Call non-emergency contact if: you have any medication questions and your symptoms worsen Follow-up/Referrals: Cornelius Hardin MD [Primary Care Provider] - 04/16/20 10:30 am (Please, follow up at [facility] Office with Dr. Lopez's associate, Swapna SHEARER, on TuesdayApril 15 at 10:30 am. *If you need to change this appointment, call their office at [phone].) Diet: Regular Addtl Attending Provider Instructions: You were admitted to the hospital for monitoring after having chest tightness. We checked your cardiac labwork which remained normal throughout your hospitalization. We did a chest xray which did not show any lung abnormalities. You had a very elevated blood pressure while you were in the hospital and we gave you some extra medication which you will take as below following discharge. You had a stress Echocardiogram, which showed no findings that would suggest a heart attack or cardiac cause to your symptoms. After ruling out the heart and lungs as causes of your sensation of tightness and pressure, we felt safe to discharge you home with the following recommendations: 1) Start taking hydrochlorothiazide (sometimes abbreviated HCTZ), one 12.5 mg pill every day. This will help control your blood pressure because it works well with the losartan medication you already take. I have sent this to the [facility] on [facility] in [place] to be available for pickup later today. 2) It is important that your follow up with your family doctor (Dr. Hardin) about a week following discharge. Please call their office to schedule an appointment to talk about your blood pressure and your chest tightness. At this time you should have some labwork to check your kidney function, to make sure you are tolerating the new HCTZ medication well. Pending Studies at Discharge: No Stand-Alone Forms: My [facility] Medications and DC Order Prescriptions: New hydrochlorothiazide 12.5 mg capsule 12.5 mg PO DAILY Qty: 30 RF: 0 Continued fluticasone propionate 50 mcg/actuation spray,suspension 1 sprays intranasal DAILY Qty: 3 RF: 2 atenolol 100 mg tablet 100 mg PO ONCE Qty: 90 RF: 1 losartan 100 mg tablet 100 mg PO DAILY Qty: 90 RF: 1 melatonin 5 mg capsule 5 mg PO HS RF: 0 omeprazole 40 mg capsule,delayed release(DR/EC) 40 mg PO DAILY Qty: 60 RF: 2 calcium carbonate-vitamin D3 600 mg(1,500mg) -200 unit tablet 1 tab PO DAILY RF: 0 Saccharomyces boulardii [Florastor] 250 mg capsule 250 mg PO BID Qty: 20 RF: 0 Discharge Orders: Discharge Order (Routine); Ordered 04/11/20 Ordered By: Lizette Angel Admission Data Admit Date/Time: 04/11/20 05:25 Attending Provider: Angelo Curiel Admit Provider: Tra Gibson Primary Care Provider: Cornelius Hardin Other Providers: Braden Butts Other Interventions: Discharge Summary Assessment (RN) Last Done: 04/11/20 15:25 Supervising Physician Co-Signing Physician Notes I personally examined the patient and verified all edgar points of history and exam, discussed case, and agree with decision making with Dr Mckeon. feeling better. stress negative. discussed blood pressure. notes stress with covid, may have had lifestyle change with quaratine as well. vitals noted nad heent nc at mmm breathing unlabored no accessory muscles good effort skin no rashes no pallor or icterus chest pressure - unclear etiology but noncardiac and stable breathing. could be heat/deconditioning and pressure from goiter? considered HTN urgency given BP up but BP not persistently in true HTN urgency ranges, and symptoms have resolve d despite BP still being fairly high, and no signs of heart stress overtly notable - so doubt this would be the case. reassuring workup - stable for home. uncontrolled HTN - stress management, lifestyle change as possible, but also add HCTZ 12.5mg, discussed risks/benefits/side effects and f/u labs and staying hydrated. f/u BMP next week, f/u PCP. pt notes she's been checking BP BID for quite a while and current readings are similar to what she's been having at home too. stable for home. Resident Activity Tracking Resident Involvement: Resident Care Provided Care Provided: Adult Hospital Medicine
--- NOTE | 2020-04-11 15:40 | Billing Data ---
Date of Service April 11, 2020 Coding Level of Care Code 05068 OBS Care - Discharge
--- NOTE | 2020-04-11 16:53 | Electrocardiogram Report ---
Test Reason : Blood Pressure : / mmHG Vent. Rate : 059 BPM Atrial Rate : 059 BPM P-R Int : 150 ms QRS Dur : 086 ms QT Int : 432 ms P-R-T Axes : 040 031 058 degrees QTc Int : 427 ms Sinus bradycardia Otherwise normal ECG When compared with ECG of 08-APR-2019 14:42, No significant change was found Confirmed by Mike Salcedo ([id number]) on 04/11/2020 4:53:33 PM Referred By: REFERRED SELF Confirmed By:Mike Salcedo
[2020-04-11] MEDS ORDERED: MELATONIN 3 MG TAB PO SCH (21:00)
--- NOTE | 2020-04-12 05:54 | Billing Data ---
Date of Service April 12, 2020 Coding Level of Care Code 75252 OBS Care - Level 3
== END 2020-04-11 15:56 | disposition home or self-care (01) ==
LOC: 2N 02:17 → ED 02:17 → SUATTDRO 05:25 → 2N 06:10